=== PATIENT | female | born 2000 | race African-American/Black ===

== ENCOUNTER → 2025-06-15 | Outpatient (CLI) | payer OTHER, SELFPAY ==
--- NOTE | 2025-06-15 15:28 | RAD_ITS ---
PROCEDURE: TOE(S) MIN 2 VIEWS 06/15/2025 REASON FOR EXAM: PAIN TECHNIQUE: Procedure Code: RADTO Modality: DX Procedure: TOE(S) MIN 2 VIEWS Laterality: FINDINGS: No visible fracture. Bone mineralization preserved. Normal alignment. Very mild degenerative changes of the interphalangeal joint of the great toe. Mild soft tissue swelling around the great toe. 3 mm calcification centered about the toenail lung clinical significance. RAD/Toe(s) Min 2 Views IMPRESSION: No fracture dislocation of the great toe. 3 mm radiopaque rounded density around the right toenail likely superficial to it. Clinical correlation recommended. Reading Location: [id number]
== END | disposition home or self-care (01) ==
LOC: MTRAD 15:28
PROVIDERS: Referring Provider Physician Assistant; Visit Provider Physician Assistant
DX: M79.674 Pain in right toe(s) (principal)
CPT/HCPCS: 73660